=== PATIENT | female | born 1960 | race African-American/Black ===

== ENCOUNTER 2019-03-24 18:47 | Emergency (ER) | payer OTHER ==
[~2019-03-24] VITALS: Ht 157.5 cm; Wt 103.9 kg
[~2019-03-24 18:47] MED LIST: ACETAMINOPHEN-1 EAC1; BENAZEPRIL HCL40 MG PO; DOXYCYCLINE 10100 M1 PO; FUROSEMIDE PO; GLUCOPHAGE; GLUCOPHAGE XR500 MG PO; GLYCOLAX POWDER17 G1 PO; LIPITOR PO; LOTENSIN PO; MUCINEX TA600 MG/TA1 PO; NORCO 5-325 TA1 EACH PO; OMEPRAZOLE20 M2 PO; POTASSIUM; POTASSIUM20 PO; PREDNISONE 10 M10 M1 PO; PREDNISONE PO; PROVENTIL INH; SINGULAIR PO; SYMBICORT160 MCG/4.
[2019-03-24] MEDS ORDERED: NORCO 5-325 TA1 EAC1 PO (20:19)
[2019-03-24 20:40] VITALS: BP 152/91
== END 2019-03-24 20:40 | disposition home or self-care (01) ==
LOC: ER 18:47
DX: R07.81 Pleurodynia (principal); M25.511 Pain in right shoulder; I10 Essential (primary) hypertension; E78.00 Pure hypercholesterolemia, unspecified; E11.9 Type 2 diabetes mellitus without complications; Z88.8 Allergy status to other drugs, medicaments and biological substances; Z88.0 Allergy status to penicillin; Z88.2 Allergy status to sulfonamides; Z79.899 Other long term (current) drug therapy; J45.909 Unspecified asthma, uncomplicated; Z90.710 Acquired absence of both cervix and uterus; Z98.890 Other specified postprocedural states; Z86.718 Personal history of other venous thrombosis and embolism; W01.198A Fall on same level from slipping, tripping and stumbling with subsequent striking against other object, initial encounter; Y93.89 Activity, other specified; Y92.89 Other specified places as the place of occurrence of the external cause; Y99.9 Unspecified external cause status

== ENCOUNTER 2021-06-18 13:46 | Emergency (ER) | payer OTHER ==
[~2021-06-18] VITALS: Ht 157.5 cm; Wt 99.8 kg
[~2021-06-18 13:46] MED LIST changes: +NORCO 5-325 TA1 EAC1 PO
[2021-06-18 14:13] LABS: ABSOLUTE NEUTROPHILS 5.3 thou/uL (1.4-8.2); BASOPHILS 0.8 % (0.0-2.0); EOSINOPHILS 2.1 % (0.0-3.0); HEMATOCRIT 38.4 % (37.0-47.0); HEMOGLOBIN 12.6 gm/dL (12.0-15.0); LYMPHOCYTES 23.6 % (24.0-44.0); MCH 30.3 pg (26.0-34.0); MCHC 32.8 g/dL (28.0-37.0); MCV 92.5 fL (80.0-100.0); MONOCYTES 6.9 % (1.0-8.0); PLATELET COUNT 211 thou/uL (150-400); POLYS 66.6 % (36.0-66.0); RBC 4.15 mil/uL (4.20-5.00); RDW 13.5 % (10.5-14.5); WBC 7.9 thou/uL (4.0-11.0)
[2021-06-18 14:20] LABS: CREATININE 0.8 mg/dL (0.6-1.0); POTASSIUM 3.6 mmol/L (3.5-5.1)
[2021-06-18 14:30] LABS: ALBUMIN 3.6 g/dL (3.4-5.0); TOTAL BILIRUBIN 0.4 mg/dL (0.2-1.0); TOTAL PROTEIN 7.5 g/dL (6.4-8.2)
[2021-06-18] MEDS ORDERED: ALBUTEROL2.5 MG/31 INH (15:16)
[2021-06-18] MEDS ORDERED: PREDNISONE 20 M20 MG PO (15:16)
[2021-06-18 15:34] VITALS: BP 152/78
--- NOTE | 2021-06-19 09:03 | EKG ---
[place] [address] [facility] [employer] [place] [address] ELECTROCARDIOGRAM REPORT Name: BISHOP GOPIKEATON Zhou Room #: [facility]#: [id number] Admission: 06/18/21 Attend Phys: Discharge: 06/18/21 Date of : 58 Report #: [id number] [facility] ED Test Date: 2021-06-18 Test Time: 13:57:14 Pat Name: KEATON NGUYỄN Department: Room: Gender: F Gaming Cashier: JACK : 1960 Requested By: Shayne Maddox Order Number: [id number] MD: Ran Pink Measurements Intervals Letcher Rate: 93 P: 70 MN: 141 QRS: -6 QRSD: 80 T: -34 QT: 362 QTc: 451 Interpretive Statements Sinus rhythm Nonspecific T abnormalities, diffuse leads Baseline wander in lead(s) V5 Compared to ECG 09/30/2009 12:03:57 No significant change was found Electronically Signed On 06-19-2021 9:02:49 E [employer] by Ran Pink [email or web address] <ELECTRONICALLY SIGNED> By: Ran Pink MD, [facility] 06/19/21 09 1357 1357 Ran Pink MD, FACC /EPI
== END 2021-06-18 15:37 | disposition home or self-care (01) ==
LOC: ER 13:46
PROVIDERS: Emergency Medicine
DX: J20.9 Acute bronchitis, unspecified (principal); Z20.822 Contact with and (suspected) exposure to COVID-19; J45.909 Unspecified asthma, uncomplicated; I10 Essential (primary) hypertension; E78.00 Pure hypercholesterolemia, unspecified; E11.9 Type 2 diabetes mellitus without complications; Z90.710 Acquired absence of both cervix and uterus; Z98.890 Other specified postprocedural states; Z86.718 Personal history of other venous thrombosis and embolism; Z79.899 Other long term (current) drug therapy; Z79.51 Long term (current) use of inhaled steroids; Z79.891 Long term (current) use of opiate analgesic; Z79.1 Long term (current) use of non-steroidal anti-inflammatories (NSAID); Z88.0 Allergy status to penicillin; Z88.2 Allergy status to sulfonamides; Z88.8 Allergy status to other drugs, medicaments and biological substances